=== PATIENT | female | born 1955 | race Caucasian/White ===

== ENCOUNTER 2022-10-29 15:55 | Emergency (ER) | payer MEDICARE, MEDICAID ==
[~2022-10-29] VITALS: Ht 170.2 cm; Wt 65.0 kg
[2022-10-29 15:59] VITALS: O2SAT 98
[2022-10-29] MEDS ORDERED: SODIUM CHLORIDE 0.9% 100 ML IV ONE (17:30)
[2022-10-29 17:36] LABS: CHLORIDE 98 mEq/L (98-107); INDEX HEMOLYSI 1 (1-3); INDEX ICTERIC 1 (1-4); INDEX LIPEMIC 1 (1-3); POTASSIUM 5.7 mEq/L (3.5-5.1); SODIUM 126 mEq/L (136-145)
[2022-10-29 17:41] LABS: BASOPHILS % 0.1 % (0.0-2.0); DIFFERENTIAL COMMENT 0; EOSINOPHILS % 2.3 % (0.0-5.0); LYMPHOCYTES % 15.1 % (20.0-50.0); MEAN CORPUSCULAR HEMOGLOBIN 27.9 pg (28.0-32.0); MEAN CORPUSCULAR HGB CONC 28.2 g/dL (31.0-37.0); MEAN CORPUSCULAR VOLUME 99.1 fL (81.0-99.0); MEAN PLATELET VOLUME 6.6 fl (7.4-10.4); MONOCYTES % 8.6 % (2.0-8.0); NEUTROPHILS % 73.9 % (40.0-76.0); PLATELET 344 x1000/uL (130-400); RED BLOOD CELL COUNT 2.49 mill/uL (4.2-5.4); RED CELL DISTRIBUTION WIDTH 20.5 % (11.6-14.6); WHITE BLOOD COUNT 19.6 x1000/uL (4.5-11.0)
[2022-10-29 17:43] LABS: HEMATOCRIT. 24.7 % (36.0-48.0)
[2022-10-29] MEDS ORDERED: CEFEPIME 2,000 MG in DEXT 5% WATER 100 ML IV STA (17:47)
[2022-10-29 17:49] LABS: ALANINE AMINOTRANSFERASE 11 IU/L (13-61); ALBUMIN 1.9 g/dL (3.4-5.0); ASPARTATE AMINOTRANSFERASE 31 IU/L (15-37); BILIRUBIN TOTAL 0.6 mg/dL (0.1-1.0); CARBON DIOXIDE 13 mEq/L (21-32); CREATININE 4.2 mg/dL (0.6-1.3); GLUCOSE 135 mg/dL (70-105); PROTEIN TOTAL 5.3 g/dL (6.0-8.3); TROPONIN I HIGH SENSITIVITY 7 ng/L (<54)
[2022-10-29] MEDS ORDERED: SODIUM CHLORIDE 0.9% 1,000 ML IV ONE (18:00)
[2022-10-29] MEDS ORDERED: VANCOMYCIN 1G PREMIX 200 ML IV SCH (18:00)
[2022-10-29] MEDS ORDERED: NOREPINEPHRINE 8MG/250ML PMX 250 ML IV ONE (18:00)
[2022-10-29 18:20] LABS: UREA NITROGEN BLOOD 102 mg/dL (7-21)
[2022-10-29 18:21] VITALS: BP 84/40; PULSE 96; RESP 16; TEMP 98.6
== END 2022-10-29 18:34 | disposition left against medical advice (07) ==
LOC: ER 15:55 → CANBEDREQ 22:12
DX: I95.9 Hypotension, unspecified (principal); D64.9 Anemia, unspecified; Z85.118 Personal history of other malignant neoplasm of bronchus and lung
CPT/HCPCS: 99291; 96360; 80053; 85025; 84484; 36415; 71045; 93005; J0692; J7060; J7050; J7030; 99285